=== PATIENT | female | born 1985 | race Caucasian/White ===

== ENCOUNTER 2017-10-12 19:09 | Emergency (ER) | payer MEDICARE, MEDICAID ==
[~2017-10-12] VITALS: Ht 157.5 cm; Wt 87.6 kg
[~2017-10-12 19:09] MED LIST: ACET250T3 PO; ALBU18HF2 INH; ASPI-611 PO; ATOR20TA PO; CLON-442 PO; DIPH-423 PO; EST1T PO; EXEN2VIA SUBCUT; METF500T7 PO; MULT-1085 PO; PIOG45TA5 PO; PRED20TA PO; RANI150C4 PO; SERT25TA PO; TOPI50TA PO
[2017-10-12] MEDS ORDERED: ketorolac trometh inj. 60 MG/2 ML VIAL IM ONE (20:00)
[2017-10-12] MEDS ORDERED: ondansetron 4mg rapidly disintigrating tab PO ONE (20:00)
[2017-10-12] MEDS ORDERED: BUPIVAcaine/PF 2.5mg/ml (0.25%) 10ml vial IJ ONE (20:05)
[2017-10-12] MEDS ORDERED: BUPIVAcaine/PF 2.5 mg/ml (0.25%) 30ml vial IJ ONE (20:15)
[2017-10-12] MEDS ORDERED: acetaminophen 325mg tablet PO ONE (21:05)
[2017-10-12 21:17] VITALS: BP 103/76
[2017-10-12 21:51] LABS: GLUCOSE,CSF 62 MG/DL (40-75); TOTAL PROTEIN,CSF 121 MG/DL (15-45)
[2017-10-12 22:07] LABS: APPEARANCE,CSF CLEAR
[2017-10-12 22:08] LABS: CSF RBC 6 /CU MM (0); CSF SUPERNATANT COLOR COLORLESS; CSF VOLUME 8 ML; TUBE# COUNTED 1
[2017-10-12 22:13] LABS: APPEARANCE,CSF CLEAR; CSF RBC 0 /CU MM (0); CSF SUPERNATANT COLOR COLORLESS; CSF VOLUME 8 ML; CSF WBC CT 11 /CU MM (0-5); CSF WBC CT 13 /CU MM (0-5); TUBE# COUNTED 4
[2017-10-12 22:16] LABS: LYMPHOCYTES,CSF 93 % (40-80); MONOCYTES,CSF 7 % (15-45)
[2017-10-12 22:17] LABS: NEUTRO,CSF 0 % (0-6)
[2017-10-12 22:20] LABS: LYMPHOCYTES,CSF 89 % (40-80); MONOCYTES,CSF 10 % (15-45); NEUTRO,CSF 1 % (0-6)
== END 2017-10-12 21:19 | disposition home or self-care (01) ==
LOC: ER 19:11
DX: R51 Headache (principal); J45.909 Unspecified asthma, uncomplicated; E11.9 Type 2 diabetes mellitus without complications; Z90.49 Acquired absence of other specified parts of digestive tract; Z86.011 Personal history of benign neoplasm of the brain; Z90.710 Acquired absence of both cervix and uterus; Z91.040 Latex allergy status; Z88.5 Allergy status to narcotic agent; Z79.82 Long term (current) use of aspirin; Z79.84 Long term (current) use of oral hypoglycemic drugs
CPT/HCPCS: 62270; 82945; 84157; 87015; 87070; 89051; 96372; 99284; J1885; J3490

== ENCOUNTER 2017-10-17 17:06 | Emergency (ER) | payer MEDICARE, MEDICAID ==
[~2017-10-17] VITALS: Ht 160 cm; Wt 86.8 kg
[2017-10-17] MEDS ORDERED: ondansetron/PF 4mg/2ml inj IV ONE ×2 (20:40→22:25)
[2017-10-17] MEDS ORDERED: morphine 5 MG/ML injection IV ONE (20:40)
[2017-10-17] MEDS ORDERED: normal saline 1000ml 1,000 ML IV ONE (20:40)
[2017-10-17] MEDS ORDERED: HYDROmorphone inj. 0.5 MG/0.5 ML DISP.SYRIN IV ONE (22:25)
[2017-10-17 22:30] LABS: URINE HCG NEGATIVE (NEG)
[2017-10-17 22:32] LABS: CLARITY,URINE CLEAR (Clear); COLOR,URINE YELLOW (Yellow); GLUCOSE, URINE NEGATIVE (Neg); KETONES,URINE TRACE mg/dl (Neg); LEUKOCYTE ESTERASE ,URINE NEGATIVE (Neg); NITRITES, URINE NEGATIVE (Neg); OCCULT BLOOD,URINE NEGATIVE (Neg); PH,URINE 5.5 (4.8-8.0); PROTEIN,URINE NEGATIVE (Neg)
[2017-10-17 22:33] LABS: UA COLLECTION TYPE CLN CATCH MIDSTREAM
[2017-10-17 22:35] LABS: BASOPHILS % (AUTO) 0.6 % (0-1); EOSINOPHILS # (AUTO) 0.3 X10'3 (0-0.9); EOSINOPHILS % (AUTO) 3.8 % (0-6); HEMATOCRIT 36.6 % (35.0-45.0); HEMOGLOBIN 12.9 g/dl (12.0-16.0); LYMPHOCYTES # (AUTO) 2.9 X10'3 (1.1-4.8); LYMPHOCYTES % (AUTO) 38.2 % (21-51); MEAN CORPUSCULAR HEMOGLOBIN 29.5 PG (27.0-31.0); MEAN CORPUSCULAR HGB CONC 35.2 % (33.0-36.5); MEAN CORPUSCULAR VOLUME 83.9 FL (78-98); MONOCYTES # (AUTO) 0.5 X10'3 (0-0.9); MONOCYTES % (AUTO) 6.4 % (2-12); NEUTROPHILS # (AUTO) 3.9 X10'3 (1.8-7.7); PLATELET COUNT 198 X10'3 (140-440); RED BLOOD COUNT 4.37 X10'6 (4.20-5.60); RED CELL DISTRIBUTION WIDTH 12.1 % (11.5-14.5); WHITE BLOOD COUNT 7.6 X10'3 (4.5-11.0)
[2017-10-17 22:47] LABS: INR 1.1 INR; PARTIAL THROMBOPLASTIN TIME 27 SECONDS (22-32); PROTHROMBIN TIME 10.9 SECONDS (9.0-12.0)
[2017-10-17 22:50] LABS: ALANINE AMINOTRANSFERASE 174 U/L (12-78); ALBUMIN 3.5 G/DL (3.4-5.0); ALBUMIN/GLOBULIN RATIO 1.1 (1.1-1.5); ALKALINE PHOSPHATASE 146 IU/L (46-116); ANION GAP 7 (8-16); ASPARTATE AMINO TRANSFERASE 60 U/L (10-37); BILIRUBIN,TOTAL 0.3 MG/DL (0.1-1.0); BLOOD UREA NITROGEN 19 MG/DL (7-18); BUN/CREATININE RATIO 23.8 (6.6-38.0); CALCIUM 8.4 MG/DL (8.5-10.1); CHLORIDE 111 MMOL/L (99-107); GLUCOSE 80 MG/DL (70-104); POTASSIUM 3.9 MMOL/L (3.5-5.1); SODIUM 144 MMOL/L (135-145); TOTAL PROTEIN 6.7 G/DL (6.4-8.2); eGFR 83 ML/MIN
[2017-10-18 02:40] VITALS: BP 107/52
[2017-10-18] MEDS ORDERED: HYDROmorphone 1 mg/ml syringe IV ONE ×2 (02:55→05:50)
[2017-10-18] MEDS ORDERED: HYDROmorphone inj. 0.5 MG/0.5 ML DISP.SYRIN ONE ×2 (03:23→05:51)
[2017-10-18] MEDS ORDERED: ondansetron/PF 4mg/2ml inj IV ONE (05:50)
== END 2017-10-18 06:11 | disposition short-term general hospital (02) ==
LOC: ER 17:06
DX: G93.2 Benign intracranial hypertension (principal); R51 Headache; E11.9 Type 2 diabetes mellitus without complications; F32.9 Major depressive disorder, single episode, unspecified; I25.10 Atherosclerotic heart disease of native coronary artery without angina pectoris; G43.909 Migraine, unspecified, not intractable, without status migrainosus; Z88.6 Allergy status to analgesic agent; Z91.040 Latex allergy status; Z79.82 Long term (current) use of aspirin
CPT/HCPCS: 36415; 80053; 81003; 81025; 85025; 85610; 85730; 96361; 96374; 96375; 96376; 99285; J1170; J2270; J2405; J7030

== ENCOUNTER 2017-12-11 19:40 | Emergency (ER) | payer MEDICARE, MEDICAID ==
[~2017-12-11] VITALS: Ht 157.5 cm; Wt 86.7 kg
[2017-12-11] MEDS ORDERED: normal saline 1000ML IV soln IVB ONE (21:25)
[2017-12-11] MEDS ORDERED: ondansetron/PF 4mg/2ml inj IV ONE (21:25)
[2017-12-11] MEDS ORDERED: morphine 4 MG/ML inj SYRINge IV ONE (21:25)
[2017-12-11] MEDS ORDERED: morphine 2 MG/ML inj. syringe IV ONE (21:35)
[2017-12-11 23:03] VITALS: BP 126/68
== END 2017-12-11 23:05 | disposition home or self-care (01) ==
LOC: ER 19:41
DX: G93.2 Benign intracranial hypertension (principal); E11.9 Type 2 diabetes mellitus without complications; J45.909 Unspecified asthma, uncomplicated; G43.909 Migraine, unspecified, not intractable, without status migrainosus; Z90.49 Acquired absence of other specified parts of digestive tract; Z90.89 Acquired absence of other organs; Z88.8 Allergy status to other drugs, medicaments and biological substances; Z91.040 Latex allergy status; Z79.84 Long term (current) use of oral hypoglycemic drugs; Z79.82 Long term (current) use of aspirin; Z79.899 Other long term (current) drug therapy
CPT/HCPCS: 62270; 96361; 96374; 96375; 99284; J2270; J2405; J7030

== ENCOUNTER 2017-12-12 09:29 | Emergency (ER) | payer MEDICARE, MEDICAID ==
[~2017-12-12] VITALS: Ht 157.5 cm; Wt 88.0 kg
[2017-12-12] MEDS ORDERED: LIDOcaine 1.5% w/epinephrine 1:200,000 5ml ampul IJ ONE (10:55)
[2017-12-12] MEDS ORDERED: ondansetron/PF 4mg/2ml inj IV ONE (10:55)
[2017-12-12] MEDS ORDERED: fentaNYL/PF 50MCG/1 ML 2ML syringe IV ONE (11:35)
[2017-12-12 13:09] VITALS: BP 96/61
== END 2017-12-12 13:10 | disposition home or self-care (01) ==
LOC: ER 09:29
DX: G43.909 Migraine, unspecified, not intractable, without status migrainosus (principal); J45.909 Unspecified asthma, uncomplicated; E11.9 Type 2 diabetes mellitus without complications; Z87.442 Personal history of urinary calculi; Z90.49 Acquired absence of other specified parts of digestive tract; Z90.710 Acquired absence of both cervix and uterus; Z91.040 Latex allergy status; Z88.5 Allergy status to narcotic agent; Z88.8 Allergy status to other drugs, medicaments and biological substances; Z79.82 Long term (current) use of aspirin; Z79.84 Long term (current) use of oral hypoglycemic drugs; Z79.899 Other long term (current) drug therapy
CPT/HCPCS: 62270; 96374; 96375; 99284; J2405; J3010; J3490